=== PATIENT | female | born 1980 | race Caucasian/White ===

== ENCOUNTER 2023-12-15 10:23 | Emergency (ER) | payer MEDICARE ==
[~2023-12-15] VITALS: Ht 149.9 cm; Wt 41.7 kg
[2023-12-15] MEDS ORDERED: Prednisone20 MG PO (11:20)
[2023-12-15] MEDS ORDERED: CEFD300 PO (11:20)
== END 2023-12-15 11:32 | disposition home or self-care (01) ==
LOC: ER 10:23
DX: J18.9 Pneumonia, unspecified organism (principal); K21.9 Gastro-esophageal reflux disease without esophagitis; Z88.1 Allergy status to other antibiotic agents
CPT/HCPCS: 71046; 99283-25